=== PATIENT | male | born 1940 | race Caucasian/White ===

== ENCOUNTER 2023-01-13 19:02 | Inpatient (IN) | payer MEDICARE, OTHER ==
[~2023-01-13] VITALS: Ht 165.1 cm; Wt 90.3 kg
--- NOTE | 2023-01-13 19:02 | NUR ---
RECEIVED PT 82 YRS MALE FROM HOME CAME BY JUDY AWAKE AND AMINA NO SOB ALOC AFTER TOOK 4 TAB HYDRALIZEN 50MG INSTRACTED BY MD BY FAMILY
--- NOTE | 2023-01-13 19:25 | NUR ---
HAND OFF MAULIK SMITH
[2023-01-13] MEDS ORDERED: IV NS 0.9% 1,000 ML BAG IV ONE (19:30)
--- NOTE | 2023-01-13 19:48 | NUR ---
TAKEN TO CT
--- NOTE | 2023-01-13 19:48 | NUR ---
ROSANA SENT TO LAB
[2023-01-13 20:21] LABS: BASOPHILS % (AUTO) 0.3 % (0.0-2.0); EOSINOPHILS % (AUTO) 1.8 % (0.0-6.0); HEMATOCRIT 41 % (39-51); HEMOGLOBIN 13.6 g/dL (13.5-17.5); LYMPHOCYTES # (AUTO) 1.9 K/uL (0.8-4.8); LYMPHOCYTES % (AUTO) 28.1 % (20.0-44.0); MEAN CORPUSCULAR HGB CONC 34 g/dl (31.0-36.0); MEAN CORPUSCULAR VOLUME 90 fL (80-96); MONOCYTES # (AUTO) 0.5 K/uL (0.1-1.30); MONOCYTES % (AUTO) 7.2 % (2.0-12.0); NEUTROPHILS # (AUTO) 4.3 K/uL (1.8-8.9); NEUTROPHILS % (AUTO) 62.6 % (43.0-81.0); PLATELET COUNT (AUTO) 152 K/uL (150-450); RED BLOOD CELL COUNT(AUTO) 4.48 MIL/uL (4.5-6.0); WHITE BLOOD COUNT (AUTO) 6.9 K/uL (4.3-11.0)
[2023-01-13] MEDS ORDERED: AZITHROMYCIN 500 MG in IV D5W 250 ML IV ONE (20:30)
[2023-01-13] MEDS ORDERED: CEFTRIAXONE 1GM BAG (ER ONLY) 1 GM/50 ML PIGGYBACK IV ONE (20:30)
[2023-01-13 20:32] LABS: CALCIUM, SERUM 8.5 mg/dL (8.5-10.1); CARBON DIOXIDE 21 mmol/L (21-32); CHLORIDE 107 mmol/L (98-107); CREATININE 1.6 mg/dL (0.6-1.3); GLUCOSE 159 mg/dL (74-106); POTASSIUM 3.5 mmol/L (3.5-5.1); SODIUM SERUM 141 mmol/L (136-145); UREA NITROGEN, BLOOD 23 mg/dL (7-18)
[2023-01-13 20:45] LABS: ALANINE AMINOTRANSFERASE 16 U/L (12-78); ALBUMIN 3.8 g/dL (3.4-5.0); ALKALINE PHOSPHATASE 80 U/L (46-116); ASPARTATE AMINOTRANSFERASE 24 U/L (15-37); BILIRUBIN,DIRECT 0.2 mg/dL (0.0-0.2); BILIRUBIN,TOTAL 0.6 mg/dL (0.2-1.0); TOTAL PROTEIN, SERUM 6.5 g/dL (6.4-8.2)
[2023-01-13] MEDS ORDERED: ASPIRIN 325 MG TABLET PO ONE (21:00)
[2023-01-13] MEDS ORDERED: AZITHROMYCIN 500 MG VIAL ONE (21:49)
[2023-01-13] MEDS ORDERED: ACETAMINOPHEN 325 MG TABLET PO PRN (22:00)
[2023-01-13] MEDS ORDERED: IV NS 0.9% 1,000 ML IV PRN (22:00)
[2023-01-13] MEDS ORDERED: MAGNESIUM HYDROXIDE 30 ML UDC PO PRN (22:00)
[2023-01-13] MEDS ORDERED: ONDANSETRON HCL/PF 4 MG/2 ML VIAL IVP PRN (22:00)
[2023-01-13] MEDS ORDERED: MAG HYDROX/AL HYDROX/SIMETH 30 ML UDC PO PRN (22:00)
[2023-01-13] MEDS ORDERED: ZOLPIDEM TARTRATE 5 MG TABLET PO PRN (22:00)
[2023-01-13] MEDS ORDERED: Z GUARD REMEDY 4 OZ OINT TP PRN (22:00)
--- NOTE | 2023-01-13 23:08 | NUR ---
REPORT GIVEN TO SPARKLE SMITH 3RD FLOOR MS
--- NOTE | 2023-01-13 23:10 | NUR ---
INSURANCE SPECIALIST NOTE RECEIVED REPORT FROM PATIENT TRANSITION SPECIALISTSARAH WILLINGHAM.
[2023-01-13 23:20] VITALS: BP 125/67
--- NOTE | 2023-01-13 23:30 | NUR ---
HEAT PUMP INSTALLERARMATURE WINDER REPAIR NOTE PATIENT WAS TRANSPORTED ON A GURNEY FROM ER. HE IS ON RA, TOLERATED WELL. NO S/S OF DISTRESS OR SOB. UPON ARRIVING AT THE UNIT, VITAL SIGNS WERE TAKEN; WNL. PT IS ALERT AND ORIENTED, AO X 3. HE IS [place] SPEAKING; UNDERSTANDS SIMPLE [place]. IV ACCESS IS AT HIS R HAND, #20G, SL; FLUSHED WELL WITH 10 CC NS. IV SITE IS PATENT AND INTACT. PT IS ON EXTERNAL REPORTING MANAGER, ON THE MONITOR, HIS HEART RHYTHM IS SR WITH PVCS AND HIS HEART RATE IS AROUND 90S. PT DENIES OF HAVING PAIN AT THIS MOMENT. ORIENTED THE PATIENT WITH SURROUNDINGS, PT VERBALIZED UNDERSTANDING. SAFETY MEASURES ARE IN PLACED: BED IN LOWEST AND LOCKED POSITION; SIDE RAILS UP X 2; CALL LIGHT AND TABLE ARE WITHIN REACH; BED ALARM IS SET. WILL CONTINUE MONITORING THE PT AND PROVIDE THE CARE PT NEEDS.
--- NOTE | 2023-01-13 23:57 | NUR ---
LATEX RIBBON MACHINE OPERATOR NOTE PT STATED HE WAS FEELING NAUSEATED. PRN IV MEDICATION, ZOFRAN, ADMINISTERED PER MD ORDER.
[2023-01-14 04:00] VITALS: BP 116/74
[2023-01-14 06:40] LABS: BASOPHILS % (AUTO) 0.3 % (0.0-2.0); EOSINOPHILS % (AUTO) 1.2 % (0.0-6.0); HEMATOCRIT 38 % (39-51); HEMOGLOBIN 12.8 g/dL (13.5-17.5); LYMPHOCYTES # (AUTO) 1.4 K/uL (0.8-4.8); LYMPHOCYTES % (AUTO) 25.6 % (20.0-44.0); MEAN CORPUSCULAR HGB CONC 33 g/dl (31.0-36.0); MEAN CORPUSCULAR VOLUME 92 fL (80-96); MONOCYTES # (AUTO) 0.5 K/uL (0.1-1.30); MONOCYTES % (AUTO) 10.1 % (2.0-12.0); NEUTROPHILS # (AUTO) 3.4 K/uL (1.8-8.9); NEUTROPHILS % (AUTO) 62.8 % (43.0-81.0); PLATELET COUNT (AUTO) 124 K/uL (150-450); RED BLOOD CELL COUNT(AUTO) 4.16 MIL/uL (4.5-6.0); WHITE BLOOD COUNT (AUTO) 5.4 K/uL (4.3-11.0)
--- NOTE | 2023-01-14 06:49 | NUR ---
METALIZING SUPERVISOR CLOSING NOTES PATIENT IS SLEEPING IN BED, EASILY BEING AROUSED. HE IS ON RA, TOLERATED WELL. NO S/S OF DISTRESS OR SOB. PT IS ALERT AND ORIENTED, AO X 3. HE IS TURK[place] SPEAKING; UNDERSTANDS SIMPLE [place]. IV ACCESS IS AT HIS R HAND, #20G, RUNNING NS @75 ML/HR. IV SITE IS PATENT AND INTACT. 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 PT DENIES OF HAVING PAIN AT THIS MOMENT. SAFETY MEASURES ARE IN PLACED: BED IN LOWEST AND LOCKED POSITION; SIDE RAILS UP X 2; CALL LIGHT AND TABLE ARE WITHIN REACH; BED ALARM IS SET. WILL ENDORSE NEXT SHIFT NURSE FOR CONTINUING CARE.
[2023-01-14 06:50] LABS: CALCIUM, SERUM 8.3 mg/dL (8.5-10.1); CARBON DIOXIDE 24 mmol/L (21-32); CHLORIDE 111 mmol/L (98-107); CREATININE 1.4 mg/dL (0.6-1.3); GLUCOSE 102 mg/dL (74-106); POTASSIUM 3.8 mmol/L (3.5-5.1); SODIUM SERUM 143 mmol/L (136-145); UREA NITROGEN, BLOOD 25 mg/dL (7-18)
[2023-01-14 06:53] LABS: MAGNESIUM 1.9 mg/dL (1.8-2.4)
[2023-01-14 07:03] LABS: CHOLESTEROL 149 mg/dL (<200); HDL CHOLESTEROL 78 mg/dL (40-60); LDL 66 mg/dL (0-99); THYROID STIMULATING HORMONE 1.871 uIU/mL (0.358-3.74); TRIGLYCERIDES 54 mg/dL (30-150)
[2023-01-14] MEDS ORDERED: LEVOTHYROXINE SODIUM 75 MCG TABLET PO SCH (07:30)
--- NOTE | 2023-01-14 07:30 | NUR ---
RESIDENT SERVICES MANAGER OPENING NOTES RECEIVED PATIENT ON BED , AWAKE , A/OX2 -3 , CZECH SPEAKING , ROOM AIR TOLERATED WELL , NO SOB OR DISTRESS NOTED , N C/O OF PAIN AND DISCOMFORT , ON TELE MONITOR SR WITH PVC @ 90 , IV ACCESS ON THE RIGHT HAND G#20 WITH NS @75 ML / HR , SAFETY MEASURES PROVIDED , CALL LIGHT WITHIN REACH , SIDE RAILS UP X2 , BED IN LOWEST POSITION AND WILL CONTINUE TO MONITOR .
[2023-01-14 08:00] VITALS: BP 111/56
[2023-01-14] MEDS ORDERED: HEPARIN SODIUM, PORCINE 5000 UNITS/1 ML VIAL SQ SCH (09:00)
[2023-01-14] MEDS ORDERED: PANTOPRAZOLE 40 MG VIAL IV SCH (09:00)
[2023-01-14] MEDS ORDERED: IV NS 0.9% 1,000 ML IV PRN (09:30)
[2023-01-14 12:48] VITALS: BP 123/50
--- NOTE | 2023-01-14 14:00 | NUR ---
TAXI CAB DRIVER NOTES PATIENT WAS SEEN BY DR LENNON AND WITH ORDER FOR DISCHARGE TO HOME . DISCHARGE PAPERS WERE PREPARED AND DISCHARGED INSTRUCTIONS PROVIDED TO THE PATIENT WITH FAMILY MEMBER SHALINI AT BED SIDE , INSTRUCTED REGARDING HOME MEDICATIONS TO CONTINUE , FOLLOW WITH PCP IN TWO WEEKS , AND TO CALL 911 IN CASE OF EMERGENCY , ALL BELONGINGS WERE TAKEN AND FORM WAS SIGNED , IV ACCESS AND ID BAND REMOVED , EMR SPECIALIST REMOVED , TRANSPORTATION WILL BE PROVIDED BY THE FAMILY MEMBER VIA PRIVATE CAR , PATIENT LEFT IN A STABLE CONDITION WITH NO C/O OF PAIN AND DISCOMFORT AND NO SOB DISTRESS NOTED , PATIENT WAS ACCOMPANIED BY FAMILY MEMBER TO THE LOBBY . PATIENT SAID HE DOESNT NEED ASSISTANCE IN GOING DOWN TO THE LOBBY .
[2023-01-14] MEDS ORDERED: CEFTRIAXONE 1 G in IV D5W 50 ML IV SCH (21:00)
[2023-01-14] MEDS ORDERED: AZITHROMYCIN 500 MG in IV D5W 250 ML IV SCH (22:00)
== END 2023-01-14 13:30 | disposition home or self-care (01) | DRG 917 ==
LOC: ER 19:04 → TELE 22:00
PROVIDERS: ADMIT Nurse Practitioner Acute Care; ATTEND Internal Medicine
DX: T50.991A Poisoning by other drugs, medicaments and biological substances, accidental (unintentional), initial encounter (principal); I50.33 Acute on chronic diastolic (congestive) heart failure; N17.0 Acute kidney failure with tubular necrosis; I11.0 Hypertensive heart disease with heart failure; Y92.009 Unspecified place in unspecified non-institutional (private) residence as the place of occurrence of the external cause; I95.2 Hypotension due to drugs; E78.5 Hyperlipidemia, unspecified; E03.9 Hypothyroidism, unspecified; J18.9 Pneumonia, unspecified organism; F03.90 Unspecified dementia, unspecified severity, without behavioral disturbance, psychotic disturbance, mood disturbance, and anxiety; K58.9 Irritable bowel syndrome, unspecified; Z20.822 Contact with and (suspected) exposure to COVID-19
CPT/HCPCS: 36415; 70450-TC; 71045-TC; 76770-TC; 80048-TC; 80061-TC; 80076-TC; 82962-TC; 83735-TC; 83880; 84100-TC; 84439-TC; 84443-TC; 84484-TC; 85025-TC; 87081-TC; 93307-TC; 97110-TC; 97116-TC; 97530-TC; A4223; C9113; C9803; G0378; J0456; J0696; J1644; J2405; J7030; J7060

== ENCOUNTER 2025-07-06 00:08 | Emergency (ER) | payer MEDICARE, OTHER ==
[~2025-07-06] VITALS: Ht 175.3 cm; Wt 111.1 kg
[2025-07-06] MEDS ORDERED: TETRAcaine 5 ML BOTTLE ONE ×2 (00:37→00:53)
[2025-07-06] MEDS: TETRAcaine 5 ML BOTTLE LEFTEYE ONE (01:08)
[2025-07-06 01:10] VITALS: BP 144/85; TEMP 98.6; O2SAT 98
== END 2025-07-06 01:10 | disposition home or self-care (01) ==
LOC: ER 00:15
DX: T85.328A Displacement of other ocular prosthetic devices, implants and grafts, initial encounter (principal); E78.5 Hyperlipidemia, unspecified; I10 Essential (primary) hypertension; K58.9 Irritable bowel syndrome, unspecified; Y84.8 Other medical procedures as the cause of abnormal reaction of the patient, or of later complication, without mention of misadventure at the time of the procedure; Y92.89 Other specified places as the place of occurrence of the external cause